=== PATIENT | female | born 1985 | race Two or more races ===

== ENCOUNTER → 2021-02-14 | Outpatient (CLI) | payer OTHER ==
[~2021-02-14] MED LIST: ALBU90AE INH; CBD TINCTURE PO; PREN1TAB10 PO
[2021-02-14 09:55] LABS: BASOPHILS % (AUTO) 1 % (0-1); EOSINOPHILS % (AUTO) 2 % (1-7); LYMPHOCYTES % (AUTO) 37 % (22-44); MEAN CORPUSCULAR HEMOGLOBIN 29.1 pg (27.0-34.8); MEAN CORPUSCULAR HGB CONC 33.8 g/dL (32.4-35.8); MEAN PLATELET VOLUME 10.4 fL (7.4-10.4); MONOCYTES % (AUTO) 9 % (2-9); NEUTROPHILS % (AUTO) 51 % (42-75); PLATELET COUNT 246 x10^3/uL (130-400); RED BLOOD COUNT 4.96 x10^6/uL (3.82-5.3); RED CELL DISTRIBUTION WIDTH 14.1 % (9.6-15.2)
[2021-02-14 09:57] LABS: INTERNATIONAL NORMALIZED RATIO 1.09 (0.93-1.1); PROTHROMBIN TIME 11.6 Seconds (9.6-11.5)
[2021-02-14 10:00] LABS: ANION GAP 6 mmol/L (5-15); CALCIUM 8.8 mg/dL (8.5-10.1); CHLORIDE 107 mmol/L (98-107)
[2021-02-14 10:08] LABS: ALANINE AMINOTRANSFERASE 22 U/L (12-78); ALKALINE PHOSPHATASE 71 U/L (45-117); BILIRUBIN,TOTAL 0.5 mg/dL (0.2-1.0); CREATININE 0.68 mg/dL (0.55-1.02); TOTAL PROTEIN 7.9 g/dL (6.4-8.2)
== END | disposition home or self-care (01) ==
LOC: STAR 08:40
PROVIDERS: ATTEND Surgery
DX: Z01.812 Encounter for preprocedural laboratory examination (principal); Z20.822 Contact with and (suspected) exposure to COVID-19
CPT/HCPCS: 36415; 80053; 84703; 85025; 85610; U0003; U0005

== ENCOUNTER 2021-02-18 12:28 | Day surgery (SDC) | payer OTHER ==
[~2021-02-18] VITALS: Ht 167.6 cm; Wt 72.5 kg
[2021-02-18 13:19] VITALS: BP 144/109
[2021-02-18] MEDS ORDERED: CHLORHEXIDINE 15 ML UDC ONE (13:24)
[2021-02-18 13:25] LABS: HCG UR SG 1.026 (1.003-1.030)
[2021-02-18] MEDS ORDERED: MIDAZOLAM 1 MG/ML, 2ML ONE (13:26)
[2021-02-18] MEDS ORDERED: FENTANYL PF 250 MCG/5ML ONE (13:27)
[2021-02-18] MEDS ORDERED: LACTATED RINGERS 1,000 ML IV SCH ×2 (13:30→19:30)
[2021-02-18] MEDS ORDERED: OXYcodone 5 MG/5 ML ORAL.SOL UDC PO PRN (13:30)
[2021-02-18] MEDS ORDERED: ONDANSETRON 2MG/ML, 2ML IVPush PRN ×2 (13:30→19:30)
[2021-02-18] MEDS ORDERED: CHLORHEXIDINE 15 ML UDC PO ONE (13:30)
[2021-02-18] MEDS ORDERED: ACETAMINOPHEN 325 MG TABLET PO PRN (13:30)
[2021-02-18] MEDS ORDERED: PROMETHAZINE 25 MG/ML, 1ML IVPush PRN (13:30)
[2021-02-18] MEDS ORDERED: FENTANYL PF 100 MCG/2ML IV PRN (13:30)
[2021-02-18] MEDS ORDERED: HYDROmorphone 1 MG/ML, 1ML INJ IVPush PRN (13:30)
[2021-02-18] MEDS ORDERED: EPHEDRINE 50 MG/ML, 1ML IVPush PRN (13:30)
[2021-02-18] MEDS ORDERED: hydrALAzine 20 MG/ML, 1ML IV PRN (13:30)
[2021-02-18] MEDS ORDERED: LABETALOL 5MG/ML, 20ML IV PRN (13:30)
[2021-02-18] MEDS ORDERED: BUPIVACAINE/PF 0.5% ONE ×3 (13:33→15:48)
[2021-02-18] MEDS ORDERED: CEFAZOLIN 1,000 MG ONE ×2 (13:33→14:14)
[2021-02-18] MEDS ORDERED: EPINEPHRINE 1 MG/ML, 1ML ONE (13:34)
[2021-02-18] MEDS ORDERED: ISOSULFAN BLUE 10 MG/ML, 5ML IV ONE (13:34)
[2021-02-18] MEDS ORDERED: GENTAMICIN 80 MG/2 ML ONE (13:34)
[2021-02-18] MEDS ORDERED: BACITRACIN 50,000 UNIT ONE (13:34)
[2021-02-18] MEDS ORDERED: METHYLENE BLUE 50 MG/10 ML AMP ONE (13:58)
[2021-02-18] MEDS ORDERED: DIPHENHYDRAMINE 50 MG/ML, 1ML ONE ×2 (14:12→16:36)
[2021-02-18] MEDS ORDERED: PROPOFOL 10 MG/ML, 20ML ONE (14:14)
[2021-02-18] MEDS ORDERED: KETOROLAC 30 MG/1 ML ONE (14:14)
[2021-02-18] MEDS ORDERED: ONDANSETRON 2MG/ML, 2ML ONE (14:14)
[2021-02-18] MEDS ORDERED: DEXAMETHASONE 4 MG/ML, 5ML ONE (14:14)
[2021-02-18] MEDS ORDERED: SUCCINYLCHOLINE 20 MG/ML, 10ML ONE (14:14)
[2021-02-18] MEDS ORDERED: HYDROmorphone 1 MG/ML, 1ML INJ ONE (14:34)
[2021-02-18] MEDS ORDERED: BUPIVACAINE/PF-EPI 0.5% 1:200K IM ONE (14:52)
[2021-02-18] MEDS ORDERED: EPHEDRINE 50 MG/ML, 1ML ONE (16:21)
[2021-02-18] MEDS ORDERED: FENTANYL PF 100 MCG/2ML ONE (17:10)
[2021-02-18] MEDS ORDERED: OXYcodone 5 MG/5 ML ORAL.SOL UDC ONE (17:11)
[2021-02-18] MEDS ORDERED: MORPHINE SULFATE 4 MG/ML, 1ML IVPush PRN (19:30)
[2021-02-18] MEDS ORDERED: HYDROcodone/APAP 7.5-325MG/15ML UDC PO PRN (19:30)
[2021-02-18] MEDS ORDERED: DIPHENHYDRAMINE 50 MG/ML, 1ML IVPush PRN (19:30)
== END 2021-02-18 21:20 | disposition home or self-care (01) ==
LOC: OUT 12:28 → 4NE 18:58 → OUT 21:20
PROVIDERS: ATTEND Plastic Surgery
DX: C50.112 Malignant neoplasm of central portion of left female breast (principal); J45.909 Unspecified asthma, uncomplicated; Z17.0 Estrogen receptor positive status [ER+]; Z79.899 Other long term (current) drug therapy; Z98.890 Other specified postprocedural states; Z82.49 Family history of ischemic heart disease and other diseases of the circulatory system
CPT/HCPCS: 15777; 19303; 19357; 38525; 81025; 88307; 88333; C1729; C1762; C1789; J0171; J0330; J0690; J1100; J1170; J1200; J1580; J1885; J2250; J2405; J2704; J3010; J7120; G0378; Q9968